=== PATIENT | male | born 2000 | race African-American/Black ===

== ENCOUNTER → 2023-12-15 | Outpatient (CLI) | payer OTHER | END | disposition home or self-care (01) | LOC: RADPV 10:04 | PROVIDERS: ATTEND Chiropractor | DX: I34.0 Nonrheumatic mitral (valve) insufficiency (principal); I21.29 ST elevation (STEMI) myocardial infarction involving other sites; I51.9 Heart disease, unspecified | CPT/HCPCS: 93005; 93306 ==